=== PATIENT | male | born 1955 | race African-American/Black ===

== ENCOUNTER 2017-04-30 13:59 | Inpatient (IN) | payer MEDICAID ==
[~2017-04-30] VITALS: Ht 188 cm; Wt 82.1 kg
[~2017-04-30 13:59] MED LIST: ASPI-1159 PO; INSU3INS6 SUBCUT; METF500T4 PO
[2017-04-30] MEDS ORDERED: DEXAMETHASONE 4MG/ML 1ML VIAL ONE (17:03)
[2017-04-30] MEDS ORDERED: NORMAL SALINE 0.9% 10 ML SYR ONE (17:04)
[2017-04-30] MEDS ORDERED: LIDOCAINE HCL 1% 20ML VIAL (Pyxis) INJ ONE (17:04)
[2017-04-30] MEDS ORDERED: GENTAMICIN SULF 40MG/ML 2ML VIAL ONE (17:04)
[2017-04-30] MEDS ORDERED: BACITRACIN 50,000 UNITS/VIAL ONE (17:04)
[2017-04-30] MEDS ORDERED: BUPIVACAINE HCL 0.5% (5MG/ML) 50ML ONE (17:04)
[2017-04-30] MEDS ORDERED: VANCOMYCIN 1 G PREMIX 200 ML IV ONE (17:15)
[2017-04-30] MEDS ORDERED: PIPERACILLIN/TAZ 3.375G PREMIX 50 ML IV ONE (17:15)
[2017-04-30] MEDS ORDERED: HYDROCODONE/ACETAMINOPHEN 5/325MG TABLET PO ONE (18:00)
[2017-04-30] MEDS ORDERED: KETOROLAC 30MG/ML VIAL IV ONE (18:00)
[2017-04-30 18:06] LABS: BASOPHILS % 0.9 % (0.0-2.0); EOSINOPHILS % 2.1 % (0.0-5.0); HEMATOCRIT. 30.6 % (42.0-52.0); HEMOGLOBIN. 9.9 g/dL (14.0-18.0); LYMPHOCYTES % 29.3 % (20.0-50.0); MEAN CORPUSCULAR HEMOGLOBIN 26.1 pg (28.0-32.0); MEAN CORPUSCULAR VOLUME 80.3 fL (80.0-94.0); MEAN PLATELET VOLUME 7.6 fl (7.4-10.4); MONOCYTES % 10.8 % (2.0-8.0); NEUTROPHILS % 56.9 % (40.0-76.0); PLATELET 352 x1000/uL (130-400); RED CELL DISTRIBUTION WIDTH 14.9 % (11.6-14.6)
[2017-04-30 18:09] LABS: CHLORIDE 103 mEq/L (98-107)
[2017-04-30 18:12] LABS: INR 1.1; PARTIAL THROMBOPLASTIN TIME 32.9 sec (23.4-31.0); PROTHROMBIN TIME 11.7 sec (9.4-11.6)
[2017-04-30 18:17] LABS: CARBON DIOXIDE 27 mEq/L (21-32)
[2017-04-30] MEDS ORDERED: DEXT 5%/0.45% NACL KCL 20MEQ/L 1,000 ML IV ONE (18:38)
[2017-04-30] MEDS ORDERED: DEXTROSE 50% WATER 50ML SYRINGE IV ONE ×2 (18:39→18:45)
[2017-04-30] MEDS ORDERED: CLONIDINE 0.1MG TABLET PO PRN (19:30)
[2017-04-30] MEDS ORDERED: ONDANSETRON HCL 4MG/2ML VIAL IV PRN (19:30)
[2017-04-30] MEDS ORDERED: DOCUSATE SODIUM 100MG CAPSULE PO PRN (19:30)
[2017-04-30] MEDS ORDERED: ACETAMINOPHEN 325MG TABLET PO PRN (19:30)
[2017-04-30] MEDS ORDERED: IPRATROPIUM/ALBUTEROL 0.5-3(2.5)MG/3ML NEB INH PRN (19:30)
[2017-04-30] MEDS ORDERED: MAGNESIUM/ALUMINUM HYDROXIDE/SIMETHICONE 30ML UDC PO PRN (19:30)
[2017-04-30 21:04] LABS: CHLORIDE 102 mEq/L (98-107)
[2017-04-30 21:07] LABS: CARBON DIOXIDE 27 mEq/L (21-32)
[2017-04-30] MEDS: HYDROCODONE/ACETAMINOPHEN 5/325MG TABLET PO PRN (23:05)
[2017-04-30 23:30] VITALS: BP 154/67
[2017-05-01] VITALS (7 sets, daily range): BP systolic 97–154; BP diastolic 60–79
[2017-05-01] MEDS ORDERED: PIPERACILLIN/TAZ 2.25G PREMIX 50 ML IV SCH
[2017-05-01] MEDS: PIPERACILLIN/TAZ 3.375G PREMIX 50 ML IV SCH ×5 (04:22→23:25)
[2017-05-01] MEDS: VANCOMYCIN 1250MG in DEXTROSE 5% WATER 250ML IV SCH ×2 (04:22→17:45)
[2017-05-01] MEDS ORDERED: DEXTROSE 50% WATER 50ML SYRINGE IV PRN (06:15)
[2017-05-01] MEDS: BLOOD SUGAR DIAGNOSTIC STRIP TEST SCH ×4 (06:30→22:30)
[2017-05-01 07:57] LABS: BASOPHILS % 0.3 % (0.0-2.0); HEMATOCRIT. 27.5 % (42.0-52.0); LYMPHOCYTES % 37.2 % (20.0-50.0); MEAN CORPUSCULAR HEMOGLOBIN 26.2 pg (28.0-32.0); MEAN CORPUSCULAR VOLUME 80.4 fL (80.0-94.0); MEAN PLATELET VOLUME 8.1 fl (7.4-10.4); MONOCYTES % 13.4 % (2.0-8.0); NEUTROPHILS % 44.1 % (40.0-76.0); PLATELET 317 x1000/uL (130-400); RED BLOOD CELL COUNT 3.42 mill/uL (4.7-6.1); RED CELL DISTRIBUTION WIDTH 14.8 % (11.6-14.6)
[2017-05-01] MEDS: INSULIN LISPRO 100 UNITS/ML SUBCUT SCH ×4 (10:09→22:30)
[2017-05-01] MEDS: MORPHINE SULFATE 4 MG/ML CPJ (NOT FOR IM USE) IV PRN ×3 (12:30→22:22)
[2017-05-01] MEDS ORDERED: NORMAL SALINE 0.9% 10 ML SYR ONE ×2 (13:41→14:17)
[2017-05-01] MEDS ORDERED: BUPIVACAINE HCL/PF 0.5% (5MG/ML) 10ML ONE (13:41)
[2017-05-01] MEDS ORDERED: GENTAMICIN SULF 40MG/ML 2ML VIAL ONE (13:41)
[2017-05-01] MEDS ORDERED: LIDOCAINE HCL 1% 20ML VIAL (Pyxis) INJ ONE (13:41)
[2017-05-01] MEDS ORDERED: BACITRACIN 50,000 UNITS/VIAL ONE ×2 (13:42→14:18)
[2017-05-01] MEDS ORDERED: LABETALOL HCL 20MG/4ML CARPUJECT IV PRN (14:45)
[2017-05-01] MEDS ORDERED: ONDANSETRON HCL 4MG/2ML VIAL IV PRN (14:45)
[2017-05-01] MEDS ORDERED: MEPERIDINE HCL/PF 25MG/ML CPJ IV PRN (14:45)
[2017-05-01] MEDS ORDERED: HYDROMORPHONE HCL/PF 2MG/ML CPJ IV PRN (14:45)
[2017-05-01] MEDS ORDERED: HYDROMORPHONE HCL/PF 2MG/ML (OR) ONE (14:54)
[2017-05-01] MEDS ORDERED: MIDAZOLAM HCL 5 MG/5 ML VIAL ONE (14:54)
[2017-05-01] MEDS ORDERED: PROPOFOL 200MG/20ML VIAL IV ONE (14:59)
[2017-05-01 17:58] LABS: CLARITY URINE CLEAR (CLEAR); COLOR URINE YELLOW (YELLOW); GLUCOSE URINE NEGATIVE (NEGATIVE); KETONES URINE NEGATIVE (NEGATIVE); LEUKOCYTE ESTERASE URINE NEGATIVE (NEGATIVE); NITRITE URINE NEGATIVE (NEGATIVE); OCCULT BLOOD URINE NEGATIVE (NEGATIVE); PH URINE 5.5 (4.5-8.0); PROTEIN URINE NEGATIVE (NEGATIVE); SPECIFIC GRAVITY URINE 1.035 (1.005-1.030)
[2017-05-01] MEDS ORDERED: ENOXAPARIN 30MG/0.3ML SYR SUBCUT SCH (22:30)
[2017-05-01] MEDS: ENOXAPARIN 40MG/0.4ML SYR SUBCUT SCH (23:21)
[2017-05-02] VITALS: BP 99/62
[2017-05-02 04:00] VITALS: BP 127/67
[2017-05-02] MEDS: VANCOMYCIN 1250MG in DEXTROSE 5% WATER 250ML IV SCH ×2 (04:00→15:54)
[2017-05-02] MEDS: PIPERACILLIN/TAZ 3.375G PREMIX 50 ML IV SCH ×5 (05:58→23:34)
[2017-05-02] MEDS: BLOOD SUGAR DIAGNOSTIC STRIP TEST SCH ×4 (07:19→21:48)
[2017-05-02] MEDS: INSULIN LISPRO 100 UNITS/ML SUBCUT SCH ×4 (07:26→21:00)
[2017-05-02 08:00] VITALS: BP 131/78
[2017-05-02] MEDS: HYDROCODONE/ACETAMINOPHEN 5/325MG TABLET PO PRN (09:34)
[2017-05-02 12:00] VITALS: BP 128/78
[2017-05-02] MEDS: MORPHINE SULFATE 4 MG/ML CPJ (NOT FOR IM USE) IV PRN ×2 (14:52→23:08)
[2017-05-02 16:00] VITALS: BP 126/76
[2017-05-02 16:21] LABS: CARBON DIOXIDE 27 mEq/L (21-32); CHLORIDE 103 mEq/L (98-107); VANCOMYCIN TROUGH 13.1 ug/mL (5.0-10.0)
[2017-05-02 19:06] LABS: TOTAL IRON BINDING CAPACITY 213 ug/dL (250-450)
[2017-05-02 19:33] LABS: CARCINO EMBRYONIC ANTIGEN 1.5 ng/ml
[2017-05-02 20:00] VITALS: BP 138/81
[2017-05-02] MEDS: ENOXAPARIN 40MG/0.4ML SYR SUBCUT SCH (21:55)
[2017-05-03] VITALS: BP 130/72
[2017-05-03] MEDS: VANCOMYCIN 1 G PREMIX 200 ML IV SCH ×4 (01:08→23:46)
[2017-05-03 04:00] VITALS: BP 137/77
[2017-05-03 05:15] LABS: BASOPHILS % 1.1 % (0.0-2.0); HEMATOCRIT. 26.2 % (42.0-52.0); HEMOGLOBIN. 8.5 g/dL (14.0-18.0); LYMPHOCYTES % 42.8 % (20.0-50.0); MEAN CORPUSCULAR HEMOGLOBIN 25.9 pg (28.0-32.0); MEAN CORPUSCULAR VOLUME 80.1 fL (80.0-94.0); NEUTROPHILS % 41.1 % (40.0-76.0); PLATELET 331 x1000/uL (130-400); RED BLOOD CELL COUNT 3.28 mill/uL (4.7-6.1); RED CELL DISTRIBUTION WIDTH 14.9 % (11.6-14.6)
[2017-05-03 05:58] LABS: CARBON DIOXIDE 29 mEq/L (21-32); CHLORIDE 105 mEq/L (98-107)
[2017-05-03] MEDS: PIPERACILLIN/TAZ 3.375G PREMIX 50 ML IV SCH ×3 (06:24→23:45)
[2017-05-03 08:00] VITALS: BP 139/87
[2017-05-03] MEDS: BLOOD SUGAR DIAGNOSTIC STRIP TEST SCH ×4 (08:03→20:47)
[2017-05-03] MEDS: INSULIN LISPRO 100 UNITS/ML SUBCUT SCH ×4 (08:19→20:44)
[2017-05-03] MEDS: HYDROCODONE/ACETAMINOPHEN 5/325MG TABLET PO PRN (10:43)
[2017-05-03 12:00] VITALS: BP 140/73
[2017-05-03 16:00] VITALS: BP 132/85
[2017-05-03] MEDS: MORPHINE SULFATE 4 MG/ML CPJ (NOT FOR IM USE) IV PRN ×2 (16:06→21:36)
[2017-05-03 20:00] VITALS: BP 139/79
[2017-05-03] MEDS: ENOXAPARIN 40MG/0.4ML SYR SUBCUT SCH (20:47)
[2017-05-04] VITALS: BP_SYST 129; BP_SYST 130; BP_DIAS 70; BP_DIAS 72
[2017-05-04 04:00] VITALS: BP 122/70
[2017-05-04] MEDS: PIPERACILLIN/TAZ 3.375G PREMIX 50 ML IV SCH ×4 (05:53→23:30)
[2017-05-04] MEDS: BLOOD SUGAR DIAGNOSTIC STRIP TEST SCH ×4 (07:29→21:36)
[2017-05-04] MEDS: INSULIN LISPRO 100 UNITS/ML SUBCUT SCH ×4 (07:35→21:36)
[2017-05-04 08:00] VITALS: BP 134/81
[2017-05-04] MEDS: VANCOMYCIN 1 G PREMIX 200 ML IV SCH ×3 (08:42→23:30)
[2017-05-04] MEDS: MORPHINE SULFATE 4 MG/ML CPJ (NOT FOR IM USE) IV PRN ×3 (08:44→21:19)
[2017-05-04 12:00] VITALS: BP 134/79
[2017-05-04 16:00] VITALS: BP 141/78
[2017-05-04 20:00] VITALS: BP 129/70
[2017-05-04] MEDS: ENOXAPARIN 40MG/0.4ML SYR SUBCUT SCH (21:18)
[2017-05-05] VITALS: BP 130/77
[2017-05-05 04:00] VITALS: BP 121/70
[2017-05-05 05:55] LABS: BASOPHILS % 1.3 % (0.0-2.0); EOSINOPHILS % 5.9 % (0.0-5.0); HEMATOCRIT. 29.2 % (42.0-52.0); HEMOGLOBIN. 9.5 g/dL (14.0-18.0); LYMPHOCYTES % 44.9 % (20.0-50.0); MEAN CORPUSCULAR VOLUME 80.3 fL (80.0-94.0); MEAN PLATELET VOLUME 7.8 fl (7.4-10.4); MONOCYTES % 10.6 % (2.0-8.0); NEUTROPHILS % 37.3 % (40.0-76.0); PLATELET 350 x1000/uL (130-400); RED BLOOD CELL COUNT 3.64 mill/uL (4.7-6.1); RED CELL DISTRIBUTION WIDTH 15.3 % (11.6-14.6)
[2017-05-05] MEDS: PIPERACILLIN/TAZ 3.375G PREMIX 50 ML IV SCH ×3 (06:32→20:00)
[2017-05-05] MEDS: BLOOD SUGAR DIAGNOSTIC STRIP TEST SCH ×4 (06:32→20:04)
[2017-05-05 07:50] LABS: CARBON DIOXIDE 28 mEq/L (21-32); CHLORIDE 105 mEq/L (98-107)
[2017-05-05] MEDS: INSULIN LISPRO 100 UNITS/ML SUBCUT SCH ×4 (07:50→21:17)
[2017-05-05] MEDS: HYDROCODONE/ACETAMINOPHEN 5/325MG TABLET PO PRN (08:56)
[2017-05-05 08:58] VITALS: BP 123/79
[2017-05-05] MEDS: VANCOMYCIN 1 G PREMIX 200 ML IV SCH ×2 (08:58→17:33)
[2017-05-05] MEDS: MORPHINE SULFATE 4 MG/ML CPJ (NOT FOR IM USE) IV PRN ×3 (12:51→23:35)
[2017-05-05] MEDS: ENOXAPARIN 40MG/0.4ML SYR SUBCUT SCH (20:00)
[2017-05-06] VITALS: BP 144/81
[2017-05-06] MEDS: PIPERACILLIN/TAZ 3.375G PREMIX 50 ML IV SCH ×3 (00:48→13:32)
[2017-05-06] MEDS: VANCOMYCIN 1 G PREMIX 200 ML IV SCH ×2 (02:15→09:40)
[2017-05-06 04:00] VITALS: BP 136/75
[2017-05-06] MEDS: BLOOD SUGAR DIAGNOSTIC STRIP TEST SCH ×2 (06:54→12:43)
[2017-05-06] MEDS: MORPHINE SULFATE 4 MG/ML CPJ (NOT FOR IM USE) IV PRN ×2 (07:02→11:19)
[2017-05-06 08:15] VITALS: BP 146/85
[2017-05-06] MEDS: INSULIN LISPRO 100 UNITS/ML SUBCUT SCH ×2 (08:58→13:31)
[2017-05-06 15:49] VITALS: BP 154/87
[2017-05-06] MEDS ORDERED: HYDR-523 PO (16:17)
== END 2017-05-06 16:45 | disposition home or self-care (01) | DRG 314 ==
LOC: ER 16:18 → 6EST 17:15 → EDBEDREQSVC 17:22 → EDBEDREQTM 17:22 → EDBEDREQ 17:22 → ENRESERV 21:10
PROVIDERS: ADMIT Internal Medicine; ATTEND Internal Medicine
PROC: 0QBP0ZZ Excision of Left Metatarsal, Open Approach (ICD-10-PCS; 2017-05-01)
PROC: 02HV33Z Insertion of Infusion Device into Superior Vena Cava, Percutaneous Approach (ICD-10-PCS; 2017-05-01)
PROC: 0QBR0ZZ Excision of Left Toe Phalanx, Open Approach (ICD-10-PCS; principal; 2017-05-01 14:00)
DX: E11.69 Type 2 diabetes mellitus with other specified complication (principal); M86.8X7 Other osteomyelitis, ankle and foot; E43 Unspecified severe protein-calorie malnutrition; D68.9 Coagulation defect, unspecified; E11.42 Type 2 diabetes mellitus with diabetic polyneuropathy; E11.621 Type 2 diabetes mellitus with foot ulcer; E11.51 Type 2 diabetes mellitus with diabetic peripheral angiopathy without gangrene; L02.612 Cutaneous abscess of left foot; D63.8 Anemia in other chronic diseases classified elsewhere; X58.XXXA Exposure to other specified factors, initial encounter; S92.322A Displaced fracture of second metatarsal bone, left foot, initial encounter for closed fracture; R16.0 Hepatomegaly, not elsewhere classified; I10 Essential (primary) hypertension; L97.529 Non-pressure chronic ulcer of other part of left foot with unspecified severity; Z79.82 Long term (current) use of aspirin; Z79.84 Long term (current) use of oral hypoglycemic drugs; Z68.23 Body mass index [BMI] 23.0-23.9, adult; Z79.4 Long term (current) use of insulin; Z82.49 Family history of ischemic heart disease and other diseases of the circulatory system; Z83.3 Family history of diabetes mellitus; Z72.0 Tobacco use; Z71.6 Tobacco abuse counseling; Z98.62 Peripheral vascular angioplasty status; Y93.89 Activity, other specified; Y92.89 Other specified places as the place of occurrence of the external cause; Y99.8 Other external cause status
CPT/HCPCS: 36415; 36569; 73620; 73630; 73721; 76700; 76937; 77001; 80048; 80053; 80061; 80202; 81003; 82378; 82728; 82962; 83540; 83550; 83615; 84443; 85025; 85044; 85610; 85651; 85730; 87040; 87070; 87075; 87077; 87186; 87205; 88304; 88311; 93970; 96365; 96367; 96375; 97110; 97116; 97162; 97530; 99285; A4216; C1725; J1100; J1170; J1580; J1650; J1815; J1885; J2250; J2270; J2543; J2704; J3370; J3490; J7040; J7050; J7060

== ENCOUNTER 2019-10-22 09:55 | Inpatient (IN) | payer MEDICAID ==
[~2019-10-22] VITALS: Ht 185.4 cm; Wt 63.5 kg
[~2019-10-22 09:55] MED LIST changes: -ASPI-1159 PO; +ASPI-1497 PO; +HYDR-523 PO; +METF-414 PO; -METF500T4 PO
[2019-10-22] MEDS ORDERED: SODIUM CHLORIDE 0.9% 1,000 ML IV ONE ×2 (10:32→10:33)
[2019-10-22] MEDS ORDERED: LORAZEPAM 2MG/ML CPJ IV ONE (10:45)
[2019-10-22 11:09] LABS: HEMATOCRIT. 43.6 % (42.0-52.0); HEMOGLOBIN. 13.9 g/dL (14.0-18.0); MEAN CORPUSCULAR HEMOGLOBIN 27.4 pg (28.0-32.0); MEAN CORPUSCULAR VOLUME 86.1 fL (80.0-94.0); MEAN PLATELET VOLUME 10.4 fl (7.4-10.4); PLATELET 316 x1000/uL (130-400); RED BLOOD CELL COUNT 5.06 mill/uL (4.7-6.1); RED CELL DISTRIBUTION WIDTH 15.1 % (11.6-14.6)
[2019-10-22 11:17] LABS: CLARITY URINE CLEAR (CLEAR); COLOR URINE YELLOW (YELLOW); KETONES URINE 3+ (NEGATIVE); LEUKOCYTE ESTERASE URINE NEGATIVE (NEGATIVE); NITRITE URINE NEGATIVE (NEGATIVE); OCCULT BLOOD URINE 2+ (NEGATIVE); PROTEIN URINE 2+ (NEGATIVE); SPECIFIC GRAVITY URINE 1.027 (1.005-1.030); UROBILINOGEN URINE 0.2 E.U./dL (0.2-1.0)
[2019-10-22 11:17] LABS: INR 0.9; PROTHROMBIN TIME 10.3 sec (9.6-11.0)
[2019-10-22 11:18] LABS: BG BASE EXCESS -2.5 mmol/L (-2.0-2.0); BG CARBOXYHEMOGLOBIN 0.5 % (0.5-1.5); BG DEOXYHEMOGLOBIN 4.2 % (0.0-5.0); BG FRACTION INSPIRED OXYGEN 21; BG HCO3 ACT 21.7 mmol/L (22.0-26.0); BG METHEMOGLOBIN 0.2 % (0.0-1.5); BG OXYGEN SATURATION 95.8 % (92.0-98.5); BG OXYHEMOGLOBIN 95.1 % (94.0-97.0); BG PCO2 35.7 mmHg (35.0-45.0); BG PH 7.402 (7.350-7.450); BG SAMPLE SITE RIGHT RADIAL; BG VENT MODE ROOM AIR
[2019-10-22 11:20] LABS: PLATELET ESTIMATE NORMAL
[2019-10-22 11:23] LABS: CHLORIDE 93 mEq/L (98-107)
[2019-10-22 11:27] LABS: ETHANOL BLOOD < 10 mg/dL
[2019-10-22 11:31] LABS: CREATINE KINASE 505 IU/L (39-308)
[2019-10-22 11:35] LABS: BETA HYDROXYBUTYRATE 6.1 mMol/L (0.0-0.3)
[2019-10-22] MEDS ORDERED: KCL 10MEQ/50ML PREMIX 50 ML IV ONE (12:30)
[2019-10-22] MEDS ORDERED: INSULIN REGULAR (HUMULIN R) 300UNITS/3ML IV ONE (12:30)
[2019-10-22] MEDS ORDERED: DOCUSATE SODIUM 100MG CAPSULE PO PRN (14:45)
[2019-10-22] MEDS ORDERED: LORAZEPAM 0.5MG TABLET PO PRN (14:45)
[2019-10-22] MEDS ORDERED: IPRATROPIUM/ALBUTEROL 0.5-3(2.5)MG/3ML NEB HHN PRN (14:45)
[2019-10-22] MEDS ORDERED: ONDANSETRON HCL 4MG/2ML INJ IV PRN (14:45)
[2019-10-22] MEDS ORDERED: CLONIDINE 0.1MG TABLET PO PRN (14:45)
[2019-10-22] MEDS ORDERED: ACETAMINOPHEN 325MG TABLET PO PRN (14:45)
[2019-10-22 15:14] LABS: *AMPHETAMINES SCREEN URINE NEGATIVE (NEGATIVE); *BARBITURATES SCREEN URINE NEGATIVE (NEGATIVE); *BENZODIAZEPINES SCREEN URINE NEGATIVE (NEGATIVE); *COCAINE SCREEN URINE NEGATIVE (NEGATIVE); CANNABINOID URINE SCREEN NEGATIVE (NEGATIVE); METHADONE URINE SCREEN NEGATIVE (NEGATIVE); PHENCYCLIDINE URINE SCREEN NEGATIVE (NEGATIVE)
[2019-10-22] MEDS: SODIUM CHLORIDE 0.9% 1,000 ML IV SCH (16:00)
[2019-10-22] MEDS ORDERED: AZITHROMYCIN 500 MG in DEXT 5% WATER 250 ML IV SCH (17:00)
[2019-10-22] MEDS ORDERED: CEFTRIAXONE 1 G PREMIX 50 ML IV SCH (17:00)
[2019-10-22] MEDS ORDERED: POTASSIUM CHLORIDE 20MEQ TABLET SR PO NR (17:00)
[2019-10-22 17:09] LABS: FOLIC ACID (FOLATE) SERUM >20 ng/mL ng/mL (>5.38)
[2019-10-22 17:20] LABS: VITAMIN B12 SERUM 824 pg/mL (211-911)
[2019-10-22] MEDS ORDERED: INSULIN GLARGINE UD 100 UNITS/ML SYR SUBCUT SCH (18:00)
[2019-10-22] MEDS ORDERED: IOHEXOL-300 100 ML BOTTLE ONE (18:55)
[2019-10-22 20:05] VITALS: BP 118/64
[2019-10-22] MEDS ORDERED: DEXTROSE 50% WATER 50ML SYRINGE IV PRN (23:30)
[2019-10-23] VITALS: BP 140/85
[2019-10-23] MEDS: CEFTRIAXONE 1 G PREMIX 50 ML IV SCH ×2 (01:13→22:49)
[2019-10-23] MEDS: SODIUM CHLORIDE 0.9% 1,000 ML IV SCH ×2 (05:24→19:13)
[2019-10-23 06:08] LABS: BASOPHILS % 0.6 % (0.0-2.0); EOSINOPHILS % 0.2 % (0.0-5.0); HEMATOCRIT. 37.8 % (42.0-52.0); HEMOGLOBIN. 12.2 g/dL (14.0-18.0); LYMPHOCYTES % 17.9 % (20.0-50.0); MEAN CORPUSCULAR HEMOGLOBIN 27.3 pg (28.0-32.0); MEAN CORPUSCULAR VOLUME 84.4 fL (80.0-94.0); MEAN PLATELET VOLUME 9.2 fl (7.4-10.4); MONOCYTES % 8.1 % (2.0-8.0); NEUTROPHILS % 73.2 % (40.0-76.0); PLATELET 334 x1000/uL (130-400); RED BLOOD CELL COUNT 4.48 mill/uL (4.7-6.1); RED CELL DISTRIBUTION WIDTH 15.4 % (11.6-14.6)
[2019-10-23 06:29] LABS: CHLORIDE 109 mEq/L (98-107)
[2019-10-23] MEDS: BLOOD SUGAR DIAGNOSTIC STRIP TEST SCH ×4 (07:36→21:02)
[2019-10-23 08:00] VITALS: BP 143/66
[2019-10-23] MEDS: INSULIN LISPRO 100 UNITS/ML SUBCUT SCH ×4 (08:40→21:22)
[2019-10-23] MEDS ORDERED: INSULIN GLARGINE UD 100 UNITS/ML SYR SUBCUT SCH (10:00)
[2019-10-23 12:00] VITALS: BP 143/77
[2019-10-23] MEDS ORDERED: AZITHROMYCIN 500 MG in DEXT 5% WATER 250 ML IV SCH (17:00)
[2019-10-23] MEDS ORDERED: DEXTROSE 50% WATER 50ML SYRINGE IV PRN (18:30)
[2019-10-23 20:00] VITALS: BP 140/87
[2019-10-23] MEDS ORDERED: BLOOD SUGAR DIAGNOSTIC STRIP TEST SCH (21:00)
[2019-10-23] MEDS: INSULIN GLARGINE UD 100 UNITS/ML SYR SUBCUT SCH (22:50)
[2019-10-24] VITALS: BP 145/90
[2019-10-24 04:00] VITALS: BP 135/89
[2019-10-24] MEDS: HYDROCODONE/ACETAMINOPHEN 5/325MG TABLET PO PRN ×3 (06:35→20:23)
[2019-10-24 06:39] LABS: CHLORIDE 102 mEq/L (98-107)
[2019-10-24 06:53] LABS: BASOPHILS % 0.5 % (0.0-2.0); EOSINOPHILS % 1.3 % (0.0-5.0); HEMATOCRIT. 32.5 % (42.0-52.0); HEMOGLOBIN. 10.8 g/dL (14.0-18.0); LYMPHOCYTES % 29.7 % (20.0-50.0); MEAN CORPUSCULAR HEMOGLOBIN 27.5 pg (28.0-32.0); MEAN CORPUSCULAR VOLUME 82.8 fL (80.0-94.0); MEAN PLATELET VOLUME 9.3 fl (7.4-10.4); MONOCYTES % 8.1 % (2.0-8.0); NEUTROPHILS % 60.4 % (40.0-76.0); PLATELET 301 x1000/uL (130-400); RED BLOOD CELL COUNT 3.92 mill/uL (4.7-6.1); RED CELL DISTRIBUTION WIDTH 14.9 % (11.6-14.6)
[2019-10-24] MEDS: BLOOD SUGAR DIAGNOSTIC STRIP TEST SCH ×4 (07:51→21:26)
[2019-10-24 08:00] VITALS: BP 112/73
[2019-10-24] MEDS: INSULIN LISPRO 100 UNITS/ML SUBCUT SCH ×4 (08:10→21:45)
[2019-10-24] MEDS: INSULIN GLARGINE UD 100 UNITS/ML SYR SUBCUT SCH ×2 (09:30→21:46)
[2019-10-24 12:00] VITALS: BP 110/65
[2019-10-24] MEDS ORDERED: POTASSIUM CHLORIDE 20MEQ/PACKET PO NR (12:30)
[2019-10-24] MEDS: SODIUM CHLORIDE 0.9% 1,000 ML IV SCH ×2 (13:11→23:29)
[2019-10-24 16:00] VITALS: BP 105/68
[2019-10-24] MEDS ORDERED: AZITHROMYCIN 500MG in DEXTROSE 5% WATER 250ML IV SCH (17:00)
[2019-10-24 20:00] VITALS: BP 140/83
[2019-10-24] MEDS ORDERED: CEFTRIAXONE 1 G PREMIX 50 ML IV SCH (23:00)
[2019-10-25] VITALS: BP 143/85
[2019-10-25 04:00] VITALS: BP 125/71
[2019-10-25] MEDS: HYDROCODONE/ACETAMINOPHEN 5/325MG TABLET PO PRN ×3 (05:43→17:09)
[2019-10-25 07:30] LABS: PARTIAL THROMBOPLASTIN TIME 22.2 sec (23.4-31.0); PROTHROMBIN TIME 10.4 sec (9.6-11.0)
[2019-10-25] MEDS: BLOOD SUGAR DIAGNOSTIC STRIP TEST SCH ×2 (07:53→12:40)
[2019-10-25] MEDS: INSULIN LISPRO 100 UNITS/ML SUBCUT SCH ×2 (07:53→15:51)
[2019-10-25 08:00] VITALS: BP 128/80
[2019-10-25] MEDS: INSULIN GLARGINE UD 100 UNITS/ML SYR SUBCUT SCH (09:58)
[2019-10-25 11:27] LABS: BASOPHILS % 0.4 % (0.0-2.0); EOSINOPHILS % 1.4 % (0.0-5.0); HEMATOCRIT. 34.9 % (42.0-52.0); HEMOGLOBIN. 11.5 g/dL (14.0-18.0); LYMPHOCYTES % 22.5 % (20.0-50.0); MEAN CORPUSCULAR HEMOGLOBIN 27.7 pg (28.0-32.0); MEAN CORPUSCULAR VOLUME 84.1 fL (80.0-94.0); MEAN PLATELET VOLUME 9.1 fl (7.4-10.4); MONOCYTES % 9.6 % (2.0-8.0); NEUTROPHILS % 66.1 % (40.0-76.0); PLATELET 269 x1000/uL (130-400); RED BLOOD CELL COUNT 4.15 mill/uL (4.7-6.1); RED CELL DISTRIBUTION WIDTH 15.3 % (11.6-14.6)
[2019-10-25 11:47] LABS: CHLORIDE 102 mEq/L (98-107)
[2019-10-25] MEDS ORDERED: INSU100V37 SQ (14:55)
[2019-10-25] MEDS ORDERED: ATOR20TA65 MT (14:55)
[2019-10-25] MEDS ORDERED: INSU100I28 SQ ×2 (14:55)
[2019-10-25] MEDS ORDERED: LEVO750T21 MT (15:04)
[2019-10-25 17:48] LABS: OPIATES URINE SCREEN NEGATIVE (NEGATIVE)
[2019-10-25] MEDS ORDERED: AZITHROMYCIN 500 MG TABLET PO SCH (18:00)
[2019-10-25 18:15] LABS: T4 FREE 1.11 ng/dL (0.76-1.46)
[2019-10-25 18:17] LABS: FOLIC ACID (FOLATE) SERUM 12.6 ng/mL (>5.38)
[2019-10-25 18:50] VITALS: BP_SYST 128; BP_SYST 138; BP_DIAS 80; BP_DIAS 84
[2019-10-25 20:00] VITALS: BP 138/84
== END 2019-10-25 21:05 | disposition home health service (06) | DRG 52 ==
LOC: ER 09:55 → 7WST 12:18 → EDBEDREQSVC 12:31 → EDBEDREQ 12:31 → ENRESERV 19:33
PROVIDERS: ADMIT Internal Medicine; ATTEND Internal Medicine
DX: G92 Toxic encephalopathy (principal); A41.9 Sepsis, unspecified organism; E11.10 Type 2 diabetes mellitus with ketoacidosis without coma; L89.153 Pressure ulcer of sacral region, stage 3; J18.9 Pneumonia, unspecified organism; E88.89 Other specified metabolic disorders; I10 Essential (primary) hypertension; E11.65 Type 2 diabetes mellitus with hyperglycemia; E87.6 Hypokalemia; F17.210 Nicotine dependence, cigarettes, uncomplicated; I25.10 Atherosclerotic heart disease of native coronary artery without angina pectoris; J43.9 Emphysema, unspecified; R80.9 Proteinuria, unspecified; Z83.3 Family history of diabetes mellitus; Z79.4 Long term (current) use of insulin; Z82.49 Family history of ischemic heart disease and other diseases of the circulatory system; Z79.899 Other long term (current) drug therapy
CPT/HCPCS: 36415; 36600; 70551; 71045; 71260; 80048; 80053; 80061; 80305; 80307; 80320; 80329; 81003; 82010; 82140; 82375; 82550; 82607; 82746; 82805; 82962; 83036; 83605; 83880; 83930; 83935; 84439; 84443; 84481; 84484; 85025; 93005; 93970; 97162; 99291; J0456; J0696; J1815; J2060; J3480; J7030; J7060; Q9967; G0480

== ENCOUNTER 2019-11-12 10:31 | Inpatient (IN) | payer MEDICAID ==
[~2019-11-12] VITALS: Ht 188 cm; Wt 69.4 kg
[~2019-11-12 10:31] MED LIST changes: -ASPI-1497 PO; +ATOR20TA65 MT; +INSU100I28 SQ; +INSU100V37 SQ; -INSU3INS6 SUBCUT; +LEVO750T21 MT
[2019-11-12] MEDS ORDERED: KETOROLAC 30MG/ML VIAL IV STA (11:29)
[2019-11-12] MEDS ORDERED: SODIUM CHLORIDE 0.9% 1,000 ML IV ONE (11:29)
[2019-11-12] MEDS ORDERED: DEXTROSE 50% WATER 50ML SYRINGE IV ONE ×2 (11:30→14:45)
[2019-11-12 12:00] LABS: BASOPHILS % 0.9 % (0.0-2.0); EOSINOPHILS % 0.4 % (0.0-5.0); HEMATOCRIT. 30.5 % (42.0-52.0); HEMOGLOBIN. 9.8 g/dL (14.0-18.0); LYMPHOCYTES % 17.3 % (20.0-50.0); MEAN CORPUSCULAR HEMOGLOBIN 27.6 pg (28.0-32.0); MEAN CORPUSCULAR VOLUME 86.2 fL (80.0-94.0); MONOCYTES % 6.5 % (2.0-8.0); NEUTROPHILS % 74.9 % (40.0-76.0); PLATELET 410 x1000/uL (130-400); RED BLOOD CELL COUNT 3.54 mill/uL (4.7-6.1); RED CELL DISTRIBUTION WIDTH 15.9 % (11.6-14.6)
[2019-11-12 12:08] LABS: CHLORIDE 104 mEq/L (98-107)
[2019-11-12 12:11] LABS: ETHANOL BLOOD < 10 mg/dL
[2019-11-12 14:41] LABS: CLARITY URINE CLEAR (CLEAR); COLOR URINE YELLOW (YELLOW); KETONES URINE NEGATIVE (NEGATIVE); LEUKOCYTE ESTERASE URINE NEGATIVE (NEGATIVE); NITRITE URINE NEGATIVE (NEGATIVE); OCCULT BLOOD URINE NEGATIVE (NEGATIVE); PROTEIN URINE NEGATIVE (NEGATIVE); SPECIFIC GRAVITY URINE 1.011 (1.005-1.030); UROBILINOGEN URINE 0.2 E.U./dL (0.2-1.0)
[2019-11-12 15:00] LABS: *AMPHETAMINES SCREEN URINE NEGATIVE (NEGATIVE); *BARBITURATES SCREEN URINE NEGATIVE (NEGATIVE); *BENZODIAZEPINES SCREEN URINE PRESUMTIVE POSITIVE (NEGATIVE); *COCAINE SCREEN URINE NEGATIVE (NEGATIVE)
[2019-11-12 15:01] LABS: CANNABINOID URINE SCREEN NEGATIVE (NEGATIVE); METHADONE URINE SCREEN NEGATIVE (NEGATIVE); OPIATES URINE SCREEN NEGATIVE (NEGATIVE); PHENCYCLIDINE URINE SCREEN NEGATIVE (NEGATIVE)
[2019-11-12 21:15] VITALS: BP 171/102
[2019-11-13] VITALS (7 sets, daily range): BP systolic 127–151; BP diastolic 77–93
[2019-11-13] MEDS ORDERED: DEXTROSE 50% WATER 50ML SYRINGE IV PRN (00:15)
[2019-11-13] MEDS: MORPHINE SULFATE 2 MG/ML CPJ (NOT FOR IM USE) IV PRN ×4 (00:49→22:28)
[2019-11-13] MEDS: AMLODIPINE 10MG TABLET PO SCH ×2 (00:53→08:41)
[2019-11-13 06:13] LABS: EOSINOPHILS % 0.9 % (0.0-5.0); HEMOGLOBIN. 8.3 g/dL (14.0-18.0); LYMPHOCYTES % 28.5 % (20.0-50.0); MEAN CORPUSCULAR HEMOGLOBIN 28.4 pg (28.0-32.0); MEAN CORPUSCULAR VOLUME 85.3 fL (80.0-94.0); MEAN PLATELET VOLUME 8.1 fl (7.4-10.4); MONOCYTES % 9.4 % (2.0-8.0); NEUTROPHILS % 60.2 % (40.0-76.0); PLATELET 355 x1000/uL (130-400); RED BLOOD CELL COUNT 2.93 mill/uL (4.7-6.1); RED CELL DISTRIBUTION WIDTH 15.9 % (11.6-14.6)
[2019-11-13 06:39] LABS: CHLORIDE 104 mEq/L (98-107)
[2019-11-13 06:54] LABS: LDL CHOLESTEROL 74 mg/dL (5-100)
[2019-11-13] MEDS: BLOOD SUGAR DIAGNOSTIC STRIP TEST SCH ×4 (06:54→21:00)
[2019-11-13 06:57] LABS: HDL CHOLESTEROL 61 mg/dL (40-59)
[2019-11-13] MEDS: INSULIN LISPRO 100 UNITS/ML SUBCUT SCH ×4 (07:50→22:49)
[2019-11-13] MEDS: ACETAMINOPHEN 325MG TABLET PO PRN (08:41)
[2019-11-13 10:43] LABS: TOTAL IRON BINDING CAPACITY 225 ug/dL (250-450)
[2019-11-13] MEDS: PIPERACILLIN/TAZOBACTAM 3.375 G in DEXT 5% WATER 100 ML IV SCH ×3 (13:03→22:48)
[2019-11-13] MEDS: BUDESONIDE 0.5MG/2ML NEB HHN SCH ×2 (16:37→21:58)
[2019-11-13] MEDS: IPRATROPIUM/ALBUTEROL 0.5-3(2.5)MG/3ML NEB HHN SCH ×2 (16:37→21:58)
[2019-11-13] MEDS: FERROUS SULFATE 325MG TABLET PO SCH (17:26)
[2019-11-13] MEDS: ATORVASTATIN CALCIUM 20MG TABLET PO SCH (21:57)
[2019-11-14] MEDS: IPRATROPIUM/ALBUTEROL 0.5-3(2.5)MG/3ML NEB HHN SCH ×4 (00:20→23:38)
[2019-11-14 04:00] VITALS: BP 135/87
[2019-11-14] MEDS: PIPERACILLIN/TAZOBACTAM 3.375 G in DEXT 5% WATER 100 ML IV SCH ×4 (05:54→22:09)
[2019-11-14 06:05] LABS: BASOPHILS % 1.1 % (0.0-2.0); EOSINOPHILS % 1.4 % (0.0-5.0); HEMOGLOBIN. 8.2 g/dL (14.0-18.0); MEAN CORPUSCULAR HEMOGLOBIN 29.1 pg (28.0-32.0); MEAN CORPUSCULAR VOLUME 85.7 fL (80.0-94.0); MEAN PLATELET VOLUME 8.3 fl (7.4-10.4); MONOCYTES % 10.6 % (2.0-8.0); NEUTROPHILS % 54.9 % (40.0-76.0); PLATELET 379 x1000/uL (130-400); RED CELL DISTRIBUTION WIDTH 16.1 % (11.6-14.6)
[2019-11-14 06:48] LABS: CHLORIDE 103 mEq/L (98-107)
[2019-11-14] MEDS: BLOOD SUGAR DIAGNOSTIC STRIP TEST SCH ×4 (07:30→21:00)
[2019-11-14 07:58] VITALS: BP 146/88
[2019-11-14] MEDS: FERROUS SULFATE 325MG TABLET PO SCH ×3 (08:49→17:35)
[2019-11-14] MEDS: DOCUSATE SODIUM 250MG CAPSULE PO SCH (08:49)
[2019-11-14] MEDS: AMLODIPINE 10MG TABLET PO SCH (08:49)
[2019-11-14] MEDS: INSULIN LISPRO 100 UNITS/ML SUBCUT SCH ×4 (08:50→22:13)
[2019-11-14] MEDS: BUDESONIDE 0.5MG/2ML NEB HHN SCH ×2 (10:26→23:37)
[2019-11-14] MEDS: INSULIN GLARGINE UD 100 UNITS/ML SYR SUBCUT SCH ×2 (11:41→22:12)
[2019-11-14 12:08] VITALS: BP 140/77
[2019-11-14] MEDS: MORPHINE SULFATE 2 MG/ML CPJ (NOT FOR IM USE) IV PRN ×2 (13:05→23:32)
[2019-11-14 15:27] VITALS: BP 136/76
[2019-11-14 20:27] VITALS: BP 124/77
[2019-11-14] MEDS: ATORVASTATIN CALCIUM 20MG TABLET PO SCH (22:10)
[2019-11-14] MEDS: ACETAMINOPHEN 325MG TABLET PO PRN (22:10)
[2019-11-15 00:39] VITALS: BP 138/87
[2019-11-15 04:00] VITALS: BP 131/78
[2019-11-15 05:48] LABS: BASOPHILS % 1.3 % (0.0-2.0); EOSINOPHILS % 1.8 % (0.0-5.0); HEMATOCRIT. 24.3 % (42.0-52.0); HEMOGLOBIN. 8.1 g/dL (14.0-18.0); LYMPHOCYTES % 33.1 % (20.0-50.0); MEAN CORPUSCULAR HEMOGLOBIN 28.8 pg (28.0-32.0); MEAN CORPUSCULAR VOLUME 86.1 fL (80.0-94.0); MEAN PLATELET VOLUME 8.2 fl (7.4-10.4); MONOCYTES % 10.7 % (2.0-8.0); NEUTROPHILS % 53.1 % (40.0-76.0); PLATELET 413 x1000/uL (130-400); RED BLOOD CELL COUNT 2.82 mill/uL (4.7-6.1); RED CELL DISTRIBUTION WIDTH 16.2 % (11.6-14.6)
[2019-11-15 06:06] LABS: PROTHROMBIN TIME 10.6 sec (9.6-11.0)
[2019-11-15] MEDS: PIPERACILLIN/TAZOBACTAM 3.375 G in DEXT 5% WATER 100 ML IV SCH ×3 (06:19→17:00)
[2019-11-15 06:35] LABS: CHLORIDE 104 mEq/L (98-107)
[2019-11-15] MEDS: BLOOD SUGAR DIAGNOSTIC STRIP TEST SCH ×3 (07:38→17:32)
[2019-11-15 08:00] VITALS: BP 143/87
[2019-11-15] MEDS: IPRATROPIUM/ALBUTEROL 0.5-3(2.5)MG/3ML NEB HHN SCH (08:30)
[2019-11-15] MEDS: BUDESONIDE 0.5MG/2ML NEB HHN SCH (08:30)
[2019-11-15] MEDS: DOCUSATE SODIUM 250MG CAPSULE PO SCH (08:32)
[2019-11-15] MEDS: FERROUS SULFATE 325MG TABLET PO SCH ×3 (08:32→18:16)
[2019-11-15] MEDS: AMLODIPINE 10MG TABLET PO SCH (08:34)
[2019-11-15] MEDS: INSULIN LISPRO 100 UNITS/ML SUBCUT SCH ×3 (08:35→18:33)
[2019-11-15] MEDS: MORPHINE SULFATE 2 MG/ML CPJ (NOT FOR IM USE) IV PRN ×2 (08:36→14:21)
[2019-11-15] MEDS: INSULIN GLARGINE UD 100 UNITS/ML SYR SUBCUT SCH (11:16)
[2019-11-15 12:00] VITALS: BP 128/84
[2019-11-15 15:50] VITALS: BP 124/80
[2019-11-15 16:00] VITALS: BP 124/80
[2019-11-15] MEDS: ACETAMINOPHEN 325MG TABLET PO PRN (18:17)
[2019-11-15] MEDS ORDERED: INSULIN GLARGINE UD 100 UNITS/ML SYR SUBCUT SCH (22:00)
== END 2019-11-15 18:40 | DRG 720 ==
LOC: ER 10:31 → 6WST 16:34 → EDBEDREQ 19:45 → ENRESERV 20:34
PROVIDERS: ADMIT Internal Medicine; ATTEND Internal Medicine
DX: A41.9 Sepsis, unspecified organism (principal); E43 Unspecified severe protein-calorie malnutrition; G93.41 Metabolic encephalopathy; L89.159 Pressure ulcer of sacral region, unspecified stage; J18.9 Pneumonia, unspecified organism; E11.649 Type 2 diabetes mellitus with hypoglycemia without coma; D64.9 Anemia, unspecified; S42.212A Unspecified displaced fracture of surgical neck of left humerus, initial encounter for closed fracture; I25.10 Atherosclerotic heart disease of native coronary artery without angina pectoris; E78.5 Hyperlipidemia, unspecified; F17.210 Nicotine dependence, cigarettes, uncomplicated; I10 Essential (primary) hypertension; J43.9 Emphysema, unspecified; Z79.4 Long term (current) use of insulin; R59.0 Localized enlarged lymph nodes; R59.1 Generalized enlarged lymph nodes; R91.8 Other nonspecific abnormal finding of lung field; X58.XXXA Exposure to other specified factors, initial encounter; Y93.89 Activity, other specified; Y92.89 Other specified places as the place of occurrence of the external cause; Y99.8 Other external cause status; Z68.1 Body mass index [BMI] 19.9 or less, adult
CPT/HCPCS: 36415; 71045; 73060; 80048; 80053; 80061; 80305; 80320; 81003; 82728; 82962; 83036; 83540; 83550; 85025; 96374; 97162; 99285; J1815; J2270; J2543; J7030; J7060; J7626; G0480

== ENCOUNTER 2020-04-13 15:14 | Inpatient (IN) | payer MEDICAID ==
[~2020-04-13] VITALS: Ht 188 cm; Wt 66.2 kg
[2020-04-13] MEDS ORDERED: SODIUM CHLORIDE 0.9% 1,000 ML IV ONE (15:29)
[2020-04-13] MEDS ORDERED: NALOXONE HCL 1 MG/ML 2ML VIAL IV ONE (15:30)
[2020-04-13] MEDS ORDERED: NALOXONE HCL 1 MG/ML 2ML VIAL ONE (15:37)
[2020-04-13 15:46] LABS: HEMOGLOBIN. 9.8 g/dL (14.0-18.0); LYMPHOCYTES % 28.7 % (20.0-50.0); MEAN CORPUSCULAR HEMOGLOBIN 27.8 pg (28.0-32.0); MEAN CORPUSCULAR VOLUME 84.9 fL (80.0-94.0); MEAN PLATELET VOLUME 8.6 fl (7.4-10.4); MONOCYTES % 7.6 % (2.0-8.0); NEUTROPHILS % 61.7 % (40.0-76.0); PLATELET 316 x1000/uL (130-400); RED BLOOD CELL COUNT 3.53 mill/uL (4.7-6.1); RED CELL DISTRIBUTION WIDTH 16.8 % (11.6-14.6)
[2020-04-13 15:51] LABS: CHLORIDE 106 mEq/L (98-107)
[2020-04-13 15:54] LABS: PROTHROMBIN TIME 10.5 sec (9.6-11.0)
[2020-04-13 15:55] LABS: ETHANOL BLOOD < 10 mg/dL
[2020-04-13 15:58] LABS: LDL CHOLESTEROL 64 mg/dL (5-100)
[2020-04-13 15:59] LABS: CREATINE KINASE 72 IU/L (39-308)
[2020-04-13] MEDS ORDERED: FOLIC ACID 1 MG, THIAMINE HCL 100 MG, MVI, ADULT NO.1 10 ML in DEXTROSE 5% WATER 1,000 ML IV ONE ×4 (16:45)
[2020-04-13 21:24] LABS: CLARITY URINE CLEAR (CLEAR); COLOR URINE YELLOW (YELLOW); KETONES URINE NEGATIVE (NEGATIVE); LEUKOCYTE ESTERASE URINE NEGATIVE (NEGATIVE); NITRITE URINE NEGATIVE (NEGATIVE); OCCULT BLOOD URINE NEGATIVE (NEGATIVE); PH URINE 6.5 (4.5-8.0); PROTEIN URINE NEGATIVE (NEGATIVE); SPECIFIC GRAVITY URINE 1.024 (1.005-1.030); UROBILINOGEN URINE 0.2 E.U./dL (0.2-1.0)
[2020-04-13 21:33] LABS: *AMPHETAMINES SCREEN URINE NEGATIVE (NEGATIVE); *BARBITURATES SCREEN URINE NEGATIVE (NEGATIVE); *BENZODIAZEPINES SCREEN URINE PRESUMTIVE POSITIVE (NEGATIVE); *COCAINE SCREEN URINE NEGATIVE (NEGATIVE)
[2020-04-13 21:34] LABS: CANNABINOID URINE SCREEN NEGATIVE (NEGATIVE); METHADONE URINE SCREEN NEGATIVE (NEGATIVE); OPIATES URINE SCREEN NEGATIVE (NEGATIVE); PHENCYCLIDINE URINE SCREEN NEGATIVE (NEGATIVE)
[2020-04-13 22:15] VITALS: BP 151/92
[2020-04-13] MEDS ORDERED: IOHEXOL-350 100 ML BOTTLE ONE (22:45)
[2020-04-13 23:00] VITALS: BP 150/92
[2020-04-14] VITALS (12 sets, daily range): BP systolic 112–156; BP diastolic 69–93
[2020-04-14] MEDS ORDERED: ONDANSETRON HCL 4MG/2ML INJ IV PRN (00:30)
[2020-04-14] MEDS ORDERED: DEXTROSE 50% WATER 50ML SYRINGE IV PRN ×2 (00:30→10:15)
[2020-04-14] MEDS ORDERED: CLONIDINE 0.1MG TABLET PO PRN ×2 (00:30→00:45)
[2020-04-14] MEDS ORDERED: ACETAMINOPHEN 325MG TABLET PO PRN ×2 (00:30→00:45)
[2020-04-14] MEDS: BLOOD SUGAR DIAGNOSTIC STRIP TEST SCH ×5 (01:06→20:51)
[2020-04-14] MEDS: INSULIN LISPRO 100 UNITS/ML SUBCUT SCH ×5 (01:06→20:53)
[2020-04-14] MEDS: HYDROCODONE/ACETAMINOPHEN 5/325MG TABLET PO PRN ×4 (03:46→23:14)
[2020-04-14 07:38] LABS: BASOPHILS % 1.3 % (0.0-2.0); EOSINOPHILS % 1.1 % (0.0-5.0); HEMATOCRIT. 29.8 % (42.0-52.0); HEMOGLOBIN. 9.7 g/dL (14.0-18.0); LYMPHOCYTES % 31.6 % (20.0-50.0); MEAN CORPUSCULAR HEMOGLOBIN 27.5 pg (28.0-32.0); MEAN CORPUSCULAR VOLUME 84.3 fL (80.0-94.0); MEAN PLATELET VOLUME 8.7 fl (7.4-10.4); PLATELET 298 x1000/uL (130-400); RED BLOOD CELL COUNT 3.53 mill/uL (4.7-6.1); RED CELL DISTRIBUTION WIDTH 16.8 % (11.6-14.6)
[2020-04-14 08:34] LABS: CHLORIDE 99 mEq/L (98-107)
[2020-04-14 08:40] LABS: LDL CHOLESTEROL 56 mg/dL (5-100)
[2020-04-14 08:43] LABS: HDL CHOLESTEROL 65 mg/dL (40-59)
[2020-04-14] MEDS: ASPIRIN 81MG TABLET PO SCH (09:00)
[2020-04-14] MEDS ORDERED: HEPARIN 5000 UNITS/ML VIAL IV SCH (09:00)
[2020-04-14] MEDS: HEPARIN 5000 UNITS/ML VIAL SUBCUT SCH ×2 (09:00→20:51)
[2020-04-14 18:07] LABS: TOTAL IRON BINDING CAPACITY 191 ug/dL (250-450)
[2020-04-14] MEDS ORDERED: ATORVASTATIN CALCIUM 20MG TABLET PO SCH (21:00)
[2020-04-15] VITALS (10 sets, daily range): BP systolic 105–140; BP diastolic 78–85
[2020-04-15] MEDS: HEPARIN 5000 UNITS/ML VIAL SUBCUT SCH (08:00)
[2020-04-15] MEDS: ASPIRIN 81MG TABLET PO SCH (08:01)
[2020-04-15] MEDS: HYDROCODONE/ACETAMINOPHEN 5/325MG TABLET PO PRN (08:01)
[2020-04-15] MEDS: INSULIN LISPRO 100 UNITS/ML SUBCUT SCH ×2 (08:02→12:27)
[2020-04-15] MEDS: BLOOD SUGAR DIAGNOSTIC STRIP TEST SCH ×2 (08:03→12:27)
[2020-05-14] MEDS ORDERED: FLUT1DIS3 INH (13:15)
[2020-05-14] MEDS ORDERED: ALBU18HF2 IH (13:15)
[2020-05-14] MEDS ORDERED: HYDR-4009 MT (13:15)
== END 2020-04-15 16:42 | disposition home or self-care (01) | DRG 812 ==
LOC: ER 15:14 → 5EST 16:42 → EDBEDREQ 16:46 → EDBEDREQTM 16:46 → EDBEDREQSVC 16:46 → ENRESERV 20:08 → 5EST 04-14 19:11
PROVIDERS: ADMIT Internal Medicine; ATTEND Internal Medicine
DX: T50.901A Poisoning by unspecified drugs, medicaments and biological substances, accidental (unintentional), initial encounter (principal); D64.9 Anemia, unspecified; E11.9 Type 2 diabetes mellitus without complications; F17.210 Nicotine dependence, cigarettes, uncomplicated; G93.40 Encephalopathy, unspecified; R91.8 Other nonspecific abnormal finding of lung field; J43.9 Emphysema, unspecified; I10 Essential (primary) hypertension; Y92.89 Other specified places as the place of occurrence of the external cause; Z79.4 Long term (current) use of insulin; Z86.73 Personal history of transient ischemic attack (TIA), and cerebral infarction without residual deficits; Z79.2 Long term (current) use of antibiotics; Z79.899 Other long term (current) drug therapy; E83.51 Hypocalcemia
CPT/HCPCS: 36415; 70496; 70498; 70551; 71045; 71250; 80048; 80053; 80061; 80305; 80320; 81003; 82550; 82728; 82962; 83036; 83540; 83550; 83721; 83880; 84443; 84484; 85025; 93005; 97162; 99291; J1644; J1815; J2310; J3411; J3490; J7030; J7070; Q9967; G0480

== ENCOUNTER 2020-07-06 14:14 | Inpatient (IN) | payer MEDICAID ==
[~2020-07-06] VITALS: Ht 182.9 cm; Wt 70.8 kg
[~2020-07-06 14:14] MED LIST changes: +ALBU18HF2 IH; +AMLO5TAB88 PO; +APIX5TAB PO; +FLUT1DIS3 INH; +HYDR-4009 MT; -LEVO750T21 MT
[2020-07-06] MEDS ORDERED: MORPHINE SULFATE 4 MG/ML CPJ (NOT FOR IM USE) IV STA (15:11)
[2020-07-06 17:15] LABS: BASOPHILS % 0.7 % (0.0-2.0); EOSINOPHILS % 0.3 % (0.0-5.0); HEMATOCRIT. 27.6 % (42.0-52.0); LYMPHOCYTES % 26.1 % (20.0-50.0); MEAN CORPUSCULAR VOLUME 83.1 fL (80.0-94.0); MEAN PLATELET VOLUME 8.4 fl (7.4-10.4); MONOCYTES % 7.6 % (2.0-8.0); NEUTROPHILS % 65.3 % (40.0-76.0); PLATELET 372 x1000/uL (130-400); RED BLOOD CELL COUNT 3.33 mill/uL (4.7-6.1); RED CELL DISTRIBUTION WIDTH 15.4 % (11.6-14.6)
[2020-07-06 17:20] LABS: CHLORIDE 108 mEq/L (98-107)
[2020-07-06 17:45] LABS: INR 1.1; PROTHROMBIN TIME 11.8 sec (9.6-11.0)
[2020-07-06] MEDS ORDERED: CEFEPIME 1,000 MG in DEXTROSE 5% WATER 50 ML IV SCH (17:45)
[2020-07-06] MEDS ORDERED: MORPHINE SULFATE 4 MG/ML CPJ (NOT FOR IM USE) IV ONE (20:00)
[2020-07-06 21:35] VITALS: BP 132/87
[2020-07-06] MEDS ORDERED: CLONIDINE 0.1MG TABLET PO PRN (22:30)
[2020-07-06] MEDS ORDERED: ACETAMINOPHEN 325MG TABLET PO PRN (22:30)
[2020-07-06] MEDS ORDERED: ONDANSETRON HCL 4MG/2ML INJ IV PRN (22:30)
[2020-07-06] MEDS ORDERED: MAGNESIUM/ALUMINUM HYDROXIDE/SIMETHICONE 30ML UDC PO PRN (22:30)
[2020-07-06] MEDS ORDERED: IPRATROPIUM/ALBUTEROL 0.5-3(2.5)MG/3ML NEB NEB PRN (22:30)
[2020-07-06] MEDS ORDERED: GUAIFENESIN 200MG/10ML SUGAR FREE UDC PO PRN (22:30)
[2020-07-06] MEDS ORDERED: DOCUSATE SODIUM 100MG CAPSULE PO PRN (22:30)
[2020-07-06] MEDS: HYDROCODONE/ACETAMINOPHEN 5/325MG TABLET PO PRN (23:02)
[2020-07-07 00:05] VITALS: BP 132/87
[2020-07-07 00:11] LABS: CHLORIDE 106 mEq/L (98-107)
[2020-07-07 04:00] VITALS: BP 114/72
[2020-07-07] MEDS ORDERED: DEXTROSE 50% WATER 50ML SYRINGE IV PRN (04:00)
[2020-07-07] MEDS: APIXABAN 5 MG TABLET PO SCH ×3 (05:58→17:34)
[2020-07-07] MEDS: MORPHINE SULFATE 2 MG/ML CPJ (NOT FOR IM USE) IV PRN ×2 (06:02→21:18)
[2020-07-07 06:44] LABS: BASOPHILS % 0.5 % (0.0-2.0); EOSINOPHILS % 0.9 % (0.0-5.0); HEMATOCRIT. 25.5 % (42.0-52.0); HEMOGLOBIN. 8.2 g/dL (14.0-18.0); LYMPHOCYTES % 29.6 % (20.0-50.0); MEAN CORPUSCULAR HEMOGLOBIN 26.7 pg (28.0-32.0); MEAN CORPUSCULAR VOLUME 82.4 fL (80.0-94.0); MEAN PLATELET VOLUME 8.8 fl (7.4-10.4); PLATELET 330 x1000/uL (130-400); RED BLOOD CELL COUNT 3.09 mill/uL (4.7-6.1); RED CELL DISTRIBUTION WIDTH 15.3 % (11.6-14.6)
[2020-07-07] MEDS: BLOOD SUGAR DIAGNOSTIC STRIP TEST SCH ×4 (06:54→21:00)
[2020-07-07 07:01] LABS: LDL CHOLESTEROL 51 mg/dL (5-100)
[2020-07-07 07:03] LABS: CREATINE KINASE 159 IU/L (39-308)
[2020-07-07 07:04] LABS: CREATINE KINASE MB FRACTION < 1.0 ng/mL (0.5-3.6)
[2020-07-07 07:07] LABS: HDL CHOLESTEROL 65 mg/dL (40-59)
[2020-07-07 08:00] VITALS: BP 129/81
[2020-07-07] MEDS: HYDROCODONE/ACETAMINOPHEN 5/325MG TABLET PO PRN ×2 (08:24→13:42)
[2020-07-07] MEDS: INSULIN LISPRO 100 UNITS/ML SUBCUT SCH ×4 (08:26→21:00)
[2020-07-07 12:00] VITALS: BP 132/84
[2020-07-07] MEDS ORDERED: INFLUENZA VACCINE 05/PF 0.5 ML VIAL IM ONE (12:00)
[2020-07-07 15:56] LABS: CREATINE KINASE 140 IU/L (39-308)
[2020-07-07 15:57] LABS: CREATINE KINASE MB FRACTION < 1.0 ng/mL (0.5-3.6)
[2020-07-07 16:00] VITALS: BP 128/80
[2020-07-07 20:00] VITALS: BP 147/88
[2020-07-08] VITALS: BP 137/91
[2020-07-08 04:00] VITALS: BP 142/95
[2020-07-08] MEDS: MORPHINE SULFATE 2 MG/ML CPJ (NOT FOR IM USE) IV PRN ×2 (04:44→12:29)
[2020-07-08] MEDS: BLOOD SUGAR DIAGNOSTIC STRIP TEST SCH ×4 (07:31→20:32)
[2020-07-08] MEDS: APIXABAN 5 MG TABLET PO SCH ×2 (10:19→16:36)
[2020-07-08] MEDS: HYDROCODONE/ACETAMINOPHEN 5/325MG TABLET PO PRN (10:20)
[2020-07-08] MEDS: INSULIN LISPRO 100 UNITS/ML SUBCUT SCH ×5 (10:37→20:32)
[2020-07-08 12:00] VITALS: BP 131/88
[2020-07-08 16:00] VITALS: BP 143/89
[2020-07-08] MEDS ORDERED: TRAMADOL 50MG TABLET PO PRN (16:15)
[2020-07-08] MEDS: OXYCODONE HCL/ACETAMINOPHEN 5/325MG TABLET PO PRN ×2 (16:36→22:36)
[2020-07-08] MEDS: INSULIN GLARGINE UD 100 UNITS/ML SYR SUBCUT SCH (18:19)
[2020-07-08 20:00] VITALS: BP 127/75
[2020-07-09] VITALS: BP 116/76
[2020-07-09 04:00] VITALS: BP 134/91
[2020-07-09] MEDS: MORPHINE SULFATE 2 MG/ML CPJ (NOT FOR IM USE) IV PRN ×3 (04:44→14:05)
[2020-07-09] MEDS: INSULIN LISPRO 100 UNITS/ML SUBCUT SCH ×4 (06:20→12:40)
[2020-07-09] MEDS: BLOOD SUGAR DIAGNOSTIC STRIP TEST SCH ×2 (06:21→12:10)
[2020-07-09 08:20] VITALS: BP 134/114
[2020-07-09] MEDS: APIXABAN 5 MG TABLET PO SCH (08:38)
[2020-07-09] MEDS: OXYCODONE HCL/ACETAMINOPHEN 5/325MG TABLET PO PRN ×2 (08:38→16:23)
[2020-07-09] MEDS: INSULIN GLARGINE UD 100 UNITS/ML SYR SUBCUT SCH (09:58)
[2020-07-09 12:00] VITALS: BP 126/82
[2020-07-09 14:15] VITALS: BP 126/82
[2020-07-09 16:23] VITALS: BP 126/82
== END 2020-07-09 17:10 | disposition home or self-care (01) | DRG 343 ==
LOC: ER 14:14 → EDBEDREQSVC 17:36 → EDBEDREQ 17:36 → EDBEDREQTM 17:36 → 8WST 19:02 → EDBEDREQ 19:06 → EDBEDREQTM 19:06 → ENRESERV 20:52
PROVIDERS: ADMIT Internal Medicine; ATTEND Internal Medicine
DX: M84.421A Pathological fracture, right humerus, initial encounter for fracture (principal); J18.9 Pneumonia, unspecified organism; C34.90 Malignant neoplasm of unspecified part of unspecified bronchus or lung; C79.51 Secondary malignant neoplasm of bone; D64.9 Anemia, unspecified; I11.0 Hypertensive heart disease with heart failure; I50.22 Chronic systolic (congestive) heart failure; I82.611 Acute embolism and thrombosis of superficial veins of right upper extremity; J44.0 Chronic obstructive pulmonary disease with (acute) lower respiratory infection; M86.8X7 Other osteomyelitis, ankle and foot; E11.69 Type 2 diabetes mellitus with other specified complication; F17.210 Nicotine dependence, cigarettes, uncomplicated; Z79.4 Long term (current) use of insulin; Z79.51 Long term (current) use of inhaled steroids; Z85.118 Personal history of other malignant neoplasm of bronchus and lung; Z87.311 Personal history of (healed) other pathological fracture; Z82.49 Family history of ischemic heart disease and other diseases of the circulatory system; Z83.3 Family history of diabetes mellitus; E43 Unspecified severe protein-calorie malnutrition; Z68.21 Body mass index [BMI] 21.0-21.9, adult
CPT/HCPCS: 36415; 71045; 73030; 73060; 73090; 80048; 80053; 80061; 82550; 82553; 82962; 83036; 83605; 84145; 84443; 84484; 85025; 86140; 90686; 93005; 93922; 93971; 99291; J0692; J1815; J2270; J7060